=== PATIENT | male | born 1960 | race Caucasian/White ===

== ENCOUNTER 2017-02-24 16:20 | Emergency (ER) | payer BC ==
[2017-02-24] MEDS ORDERED: predniSONE 10 MG Tab PO ONE (16:21)
[2017-02-24 16:24] VITALS: BP 134/86
[2017-02-24] MEDS ORDERED: Albuterol/Ipratropium 3.0-0.5 MG/3 ML Neb Soln NEB ONE (16:29)
--- NOTE | 2017-02-25 01:00 | ER ---
DATE SEEN: 02/24/2017 TIME SEEN: 1630 hours. REASON FOR VISIT: Cough. HISTORY OF PRESENT ILLNESS: This is a 56-year-old male with a cough. This started about 2 weeks ago, gotten worse. He has had wheezing, difficulty breathing, heaviness of the chest. He has a history of asthma and is needed to use his inhaler more than usual. SOCIAL HISTORY: Does not smoke. Works at the [employer]. MEDICATIONS: Reviewed. ALLERGIES: Reviewed. REVIEW OF SYSTEMS: All other systems negative. PHYSICAL EXAMINATION: GENERAL: He is coughing constantly. VITAL SIGNS: His pulse is 101, temperature 98.9, and blood pressure is normal. EARS, NOSE AND THROAT: Negative. NECK: No JVD. CARDIOVASCULAR: Normal. RESPIRATORY: Clear. IMPRESSION: 1. Acute bronchitis. 2. Exacerbation of asthma. PLAN: 1. DuoNeb x1. 2. Prednisone 10 mg b.i.d. 3. Maddy Moses 1 t.i.dMelissa p.r.nMelissa /[id number] COLLIN/BRANDEN
== END 2017-02-24 16:45 | disposition home or self-care (01) ==
LOC: FB.ED 16:20
DX: J45.901 Unspecified asthma with (acute) exacerbation (principal)
CPT/HCPCS: 93005; 94640; 99283; J7620; 93010; A9270-GY